=== PATIENT | male | born 1965 | race Caucasian/White ===

== ENCOUNTER 2023-09-15 20:55 | Emergency (ER) | payer BC, SELFPAY ==
[2023-09-15 21:02] VITALS: BP 147/81
[2023-09-15 21:31] VITALS: BMI 26.2
[2023-09-15] MEDS: TORADOL 30 MG IM (22:01)
[2023-09-15] MEDS: NEURONTIN 300 MG PO (22:01)
[2023-09-15] MEDS: DILAUDID 1 MG IM (22:02)
--- NOTE | 2023-09-15 22:50 | ED.GENMED ---
History of Present Illness
General
Chief Complaint: Musculo-Skeletal Complaint
Time Seen by Provider: 09/15/23 21:31
History of Present Illness
History of Present Illness:
58-year-old male with history of degenerative disc disease in the cervical spine presents to the emergency department for evaluation of acute onset of neck discomfort rigidity. Denies fevers or headaches. Denies upper extremity paresthesias. Has
had this happen in the past and is typically done well with muscle relaxants
Past History
Past History
ED Past Medical History: Hypercholesterolemia, Hypothyroidism and Other
ED Past Surgical History: Orthopedic
Social History
Tobacco: Non-smoker
Personal:
Living: with family
Employment: Employed
Review of Systems
Review of Systems
Allergies reviewed?: Yes
All Other Systems: ROS reviewed and negative except as documented in HPI and ROS
Phy Exam
Physical Exam
Physical Exam:
GEN: Well appearing, NAD, WDWN
HEENT: Oral mucosa moist, no scleral icterus. Bilateral trapezius tension noted, range of motion minimal secondary to pain with
Cardiac: Regular rate
Lung: No respiratory distress, no tachypnea
MSK: No gross deformity or injuries
Skin: Good color, no pallor or jaundice, no rashes
Neuro: AO x3, moves all extremities freely, bilateral upper extremity strength is 5 out of 5 in all chapin
Psych: Calm, cooperative
Course
Orders/Labs/Results
Orders:
Orders
09/15/23 21:40
Gabapentin [Neurontin] 300 mg PO NOW STA
HYDROmorphone [Dilaudid] 1 mg IM NOW STA
Ketorolac [Toradol] 30 mg IM NOW STA
09/15/23 22:53
Diazepam [Valium] 2 mg PO NOW STA
Vital Signs
Initial and Last Documented VS:
Initial Vital Signs
Temp Pulse Resp BP Pulse Ox
98.9 F 67 18 147/81 98
09/15/23 21:02 09/15/23 21:02 09/15/23 21:02 09/15/23 21:02 09/15/23 21:02
Last Documented Vital Signs
Temp Pulse Resp BP Pulse Ox
98.9 F 59 18 135/79 99
09/15/23 21:02 09/15/23 23:04 09/15/23 23:04 09/15/23 23:04 09/15/23 23:04
MDM/Problems Addressed
MDM/Problems Addressed:
Likely acute exacerbation of degenerative disc disease, no evidence for cervical spine emergency at this time. He is neurologically intact thus I do not see any indication for imaging. Improve dramatically with treatment measures in the emergency
department. Will trial a steroid pack and Valium for muscle relaxation. Encouraged outpatient pain/spine follow-up
*Critical Care Note
Total Time (30-74mins, 75-104mins- exclusive of procedures): Not Applicable
ED Attending Note
-
Portions of this chart may have been created with voice recognition software.� Occasional wrong word or��sound alike� substitutions may have occurred due to the inherent limitations of voice recognition software.
Discharge Plan
Departure
Patient Disposition: Home (Routine Discharge)
Date of Disposition: 09/15/23
Time of Disposition: 22:51
Patient with high blood pressure during this ER visit?: No
Discharge Problem:
Cervical paraspinous muscle spasm
Instructions: Cervical Sprain ED
Prescriptions:
New
diazepam 5 mg tablet
5 mg PO TID PRN (Reason: muscle spasm) Qty: 15 0RF
methylprednisolone [Medrol (Pascual)] 4 mg tablets,dose pack
See Rx Instructions .ROUTE .COMPLEX Qty: 21 0RF
Rx Instructions:
orally per package directions
No Action
diazepam 5 MG tablet
5 mg PO TIDPRN PRN (Reason: neck pain) Qty: 9 0RF
gabapentin 300 MG capsule
300 mg PO TID Qty: 9 0RF
gabapentin 300 MG capsule
300 mg PO TID Qty: 10 0RF
Referrals:
Ayaka Knox MD [Family Provider] -
Activity Restrictions/Additional Instructions:
You may take acetaminophen or your Percocet in addition to the medications I prescribed you. Avoid taking ibuprofen or aspirin while you are on the steroids
Follow-up with your pain and microbial specialist
Interventions
Interventions:
*Risk Screen - Suicide Last Done: 09/15/23 21:02
*General Assessment Last Done: 09/15/23 21:02
*Neglect/Abuse Screening Last Done: 09/15/23 21:02
*Nursing Disposition Last Done: 09/15/23 23:04
ED-Musculoskeletal Assessment Last Done: 09/15/23 21:31
Discharge Date and Time
Discharge Date/Time: 09/15/23 23:08
Print Language: [id number]
[2023-09-15] MEDS: VALIUM 2 MG PO (22:59)
[2023-09-15 23:04] VITALS: BP 135/79
== END 2023-09-15 23:08 | disposition home or self-care (01) ==
LOC: EMR 20:55
PROVIDERS: EMERGENCY PHYSICIAN Emergency Medicine; FAMILY PHYSICIAN Family Medicine
DX: M62.830 Muscle spasm of back (principal)
CPT/HCPCS: 99284; 96372 ×2

== ENCOUNTER → 2024-02-17 14:01 | Outpatient (REF) | payer BC, SELFPAY | LOC: HWRCS 14:01 | PROVIDERS: ATTENDING PHYSICIAN Internal Medicine Cardiovascular Disease; FAMILY PHYSICIAN Family Medicine | DX: I10 Essential (primary) hypertension (principal); I71.21 Aneurysm of the ascending aorta, without rupture | CPT/HCPCS: 93306 ==

== ENCOUNTER → 2025-01-30 09:11 | Outpatient (REF) | payer BC, SELFPAY | LOC: HWRCS 09:11 | PROVIDERS: ATTENDING PHYSICIAN Internal Medicine Cardiovascular Disease; FAMILY PHYSICIAN Family Medicine | DX: I10 Essential (primary) hypertension (principal); I77.810 Thoracic aortic ectasia | CPT/HCPCS: 93306 ==

== ENCOUNTER → 2025-02-11 15:35 | Outpatient (REF) | payer BC, SELFPAY | LOC: RAD 15:35 | PROVIDERS: ATTENDING PHYSICIAN Internal Medicine Cardiovascular Disease; FAMILY PHYSICIAN Family Medicine | DX: I71.21 Aneurysm of the ascending aorta, without rupture (principal); I10 Essential (primary) hypertension; I77.810 Thoracic aortic ectasia | CPT/HCPCS: 71275; Q9967 ==